=== PATIENT | male | born 1955 | race Caucasian/White ===

== ENCOUNTER 2022-02-19 14:19 | Emergency (ER) | payer OTHER ==
[~2022-02-19] VITALS: Ht 182.9 cm; Wt 59.0 kg
[2022-02-19 14:22] VITALS: BP_SYST 130
--- NOTE | 2022-02-19 14:22 | NUR ---
ER at bedside examining patient.
--- NOTE | 2022-02-19 14:22 | NUR ---
Patient to ER bed 1 to gown for evaluation. Side rails up. Report given to Aurelio.
--- NOTE | 2022-02-19 14:48 | NUR ---
Pt present to ED via EMS with report of low O2 sat at facility. Pt hx of COPD and drug abuse. Ultrasounded IV initiated.
[2022-02-19] MEDS: dilTIAZem HCL IVP 5 MG/ML VIAL IVP ONE (15:01)
[2022-02-19] MEDS: DILTIAZEM HCL 60 MG TABLET PO ONE (15:02)
--- NOTE | 2022-02-19 15:07 | NUR ---
ED physician at the bedside assessing pt
[2022-02-19 15:13] LABS: CALCIUM 8.5 mg/dL (8.4-11.0); CREATININE 0.88 mg/dL (0.55-1.30); POTASSIUM 3.5 mmol/L (3.5-5.1)
[2022-02-19 15:16] LABS: HEMOGLOBIN 15.6 g/dL (14.0-18.0); MEAN CORPUSCULAR VOLUME 84 fL (79.0-98.0)
[2022-02-19 15:18] LABS: ALBUMIN 3.6 g/dL (3.4-4.8); TOTAL BILIRUBIN 0.4 mg/dL (0.0-1.0)
[2022-02-19 15:22] LABS: BASOPHILS % (AUTO) 0.5 % (0.0-2.0); EOSINOPHILS % (AUTO) 0.5 % (0.0-4.0); HEMATOCRIT 46.7 % (36-54); LYMPHOCYTES # (AUTO) 1.9 K/uL (1.0-5.5); LYMPHOCYTES % (AUTO) 21.2 % (20.5-51.5); MEAN CORPUSCULAR HEMOGLOBIN 28 pg (27-31); MEAN CORPUSCULAR HGB CONC 33 % (32-36); MONOCYTES # (AUTO) 0.9 K/uL (0.0-1.0); MONOCYTES % (AUTO) 9.5 % (1.7-9.3); NEUTROPHILS # (AUTO) 6.3 K/uL (1.8-7.7); NEUTROPHILS % (AUTO) 68.3 % (40.0-70.0); PLATELET COUNT (AUTO) 423 K/uL (130-430); RED BLOOD CELL COUNT(AUTO) 5.55 MIL/uL (4.2-6.2); RED CELL DISTRIBUTION WIDTH 15.3 % (9.0-15.0); WHITE BLOOD COUNT (AUTO) 9.1 K/uL (4.8-10.8)
[2022-02-19] MEDS: HYDROcodone/ACETAMIN 10-325 MG TAB PO ONE ×2 (15:22→16:21)
--- NOTE | 2022-02-19 15:48 | NUR ---
Pt sister at the bedside with pt. Pt in no acute distress at this time
[2022-02-19] MEDS ORDERED: DIPH-TET-PERTUS Vaccine 0.5 ML VIAL (ADACEL) I.M. ONE (16:15)
[2022-02-19] MEDS: BACITRACIN 1 GM OINT TP ONE (16:39)
--- NOTE | 2022-02-19 18:31 | NUR ---
Report called to Lela Harvey.
--- NOTE | 2022-02-19 19:30 | NUR ---
Received in bed, resting comfortably. No signs of acute distress. Sister at bedside.
[2022-02-19 21:56] VITALS: BP_SYST 137
--- NOTE | 2022-02-19 22:00 | NUR ---
[facility] arrived for transportation back to [facility]. Pt left in stable condition.
--- NOTE | 2022-02-19 22:01 | NUR ---
Patient given written and verbal discharge instructions and verbalizes understanding. ER MD Garcia discussed with patient the results and treatment provided. Patient in stable condition. ID arm band removed. IV catheter removed intact and dressing applied, no active bleeding. Opportunity for questions provided and answered.
== END 2022-02-19 21:56 ==
LOC: SED 14:19
DX: F11.23 Opioid dependence with withdrawal (principal); Z20.822 Contact with and (suspected) exposure to COVID-19
CPT/HCPCS: 36415; 36600; 70450; 71045; 76376; 80053; 82803; 83605; 83880; 85025; 87426; 93005; 96374; 99285; J3490